=== PATIENT | female | born 1995 | race Caucasian/White ===

== ENCOUNTER 2020-09-13 10:38 | Emergency (ER) | payer SELFPAY ==
[~2020-09-13] VITALS: Ht 162.6 cm; Wt 59.1 kg
[2020-09-13 11:05] VITALS: BP 102/65; TEMP 98.1
[2020-09-13] MEDS ORDERED: PREDNISONE20 MG PO (11:50)
[2020-09-13] MEDS ORDERED: ZOVIRAX800 MG PO (11:50)
[2020-09-13 12:10] VITALS: PULSE 86
== END 2020-09-13 12:10 | disposition home or self-care (01) ==
LOC: COL.ER 10:38
DX: B02.21 Postherpetic geniculate ganglionitis (principal); B02.9 Zoster without complications; Z91.041 Radiographic dye allergy status